=== PATIENT | male | born 2000 | race Caucasian/White ===

== ENCOUNTER 2018-02-24 12:28 | Emergency (ER) | payer SELFPAY ==
[~2018-02-24] VITALS: Ht 172.7 cm; Wt 78.0 kg
[2018-02-24 12:41] VITALS: BP 126/70
== END 2018-02-24 13:42 | disposition home or self-care (01) ==
LOC: ED 13:39
DX: W25.XXXA Contact with sharp glass, initial encounter (principal); Y93.89 Activity, other specified; S61.210A Laceration without foreign body of right index finger without damage to nail, initial encounter; Y99.8 Other external cause status; Y92.009 Unspecified place in unspecified non-institutional (private) residence as the place of occurrence of the external cause
CPT/HCPCS: 99284

== ENCOUNTER 2019-10-31 21:58 | Emergency (ER) | payer MEDICAID, OTHER ==
[~2019-10-31] VITALS: Ht 172.7 cm; Wt 77.3 kg
--- NOTE | 2019-10-31 23:09 | NUR ---
erp cas in to do rectal exam
[2019-10-31] MEDS ORDERED: FAMOTIDINE 20 MG/2 ML ONE ×2 (23:22→23:57)
[2019-10-31] MEDS ORDERED: FAMOTIDINE 20 MG/2 ML IVPush ONE (23:30)
[2019-10-31 23:44] LABS: BASOPHILS # (AUTO) 0.06 x10^3/uL (0-0.3); BASOPHILS % (AUTO) 1 % (0-1); EOSINOPHILS # (AUTO) 0.09 x10^3/uL (0-0.8); EOSINOPHILS % (AUTO) 1 % (1-7); LYMPHOCYTES # (AUTO) 2.47 x10^3/uL (1-6.1); LYMPHOCYTES % (AUTO) 32 % (22-44); MD NO; MEAN CORPUSCULAR HEMOGLOBIN 32.6 pg (27.5-34.5); MEAN CORPUSCULAR HGB CONC 33.8 g/dL (33.2-36.2); MEAN CORPUSCULAR VOLUME 96.5 fL (81-97); MEAN PLATELET VOLUME 7.9 fL (7.4-10.4); MONOCYTES # (AUTO) 0.59 x10^3/uL (0-1.4); MONOCYTES % (AUTO) 8 % (2-9); NEUTROPHILS # (AUTO) 4.59 x10^3/uL (1.8-8.0); NEUTROPHILS % (AUTO) 59 % (42-75); PLATELET COUNT 228 x10^3/uL (130-400); RED BLOOD COUNT 5.06 x10^6/uL (4.38-5.82); RED CELL DISTRIBUTION WIDTH 12.4 % (9.4-14.8)
[2019-10-31 23:55] LABS: ANION GAP 8 mmol/L (5-15); CALCIUM 8.8 mg/dL (8.5-10.1); CHLORIDE 103 mmol/L (98-107); CREATININE 1.11 mg/dL (0.7-1.3)
[2019-11-01 00:06] VITALS: BP 111/69
== END 2019-11-01 00:31 | disposition home or self-care (01) ==
LOC: ED 11-01 00:02
DX: K29.20 Alcoholic gastritis without bleeding (principal); F10.10 Alcohol abuse, uncomplicated; K92.1 Melena; F17.210 Nicotine dependence, cigarettes, uncomplicated; F12.10 Cannabis abuse, uncomplicated; Y90.9 Presence of alcohol in blood, level not specified
CPT/HCPCS: 36415; 80048; 85025; 96374; 99283; J3490

== ENCOUNTER 2020-06-08 01:04 | Emergency (ER) | payer OTHER ==
[~2020-06-08] VITALS: Ht 172.7 cm; Wt 82.0 kg
[2020-06-08 01:08] VITALS: BP 129/68
--- NOTE | 2020-06-08 01:21 | NUR ---
TASK RN: PA AT BEDSIDE FOR SUTURE REMOVAL
[2020-06-08] MEDS ORDERED: LIDOCAINE-MPF 1%, 5ML INFIL ONE (02:00)
[2020-06-08] MEDS ORDERED: LIDOCAINE-MPF 1%, 5ML ONE (02:01)
--- NOTE | 2020-06-08 05:09 | NUR ---
patient resting comfortably at this time, awaiting for plastics to come evaluate patient. MD took out the stitches
--- NOTE | 2020-06-08 06:30 | NUR ---
plastic in [facility]
== END 2020-06-08 07:08 | disposition home or self-care (01) ==
LOC: ED 02:17
DX: T81.33XA Disruption of traumatic injury wound repair, initial encounter (principal); S01.21XD Laceration without foreign body of nose, subsequent encounter; Z48.02 Encounter for removal of sutures; R51 Headache; W19.XXXD Unspecified fall, subsequent encounter; Y83.8 Other surgical procedures as the cause of abnormal reaction of the patient, or of later complication, without mention of misadventure at the time of the procedure
CPT/HCPCS: 99282; 99283